=== PATIENT | female | born 1975 | race Caucasian/White ===

== ENCOUNTER 2019-09-28 08:35 | Outpatient (CLI) | payer OTHER, SELFPAY ==
--- NOTE | 2019-09-28 10:00 | NEURO_ITS ---
Patient Number: [id number] Impression: # Complains of intermittent numbness of legs; diabetic. # Normal nerve conduction study at this stage including F-waves. # Normal needle/EMG exam. # Clinical correlation recommended. Nerve Conduction Studies Anti Sensory Summary Table Stim Site NR Peak (ms) P-T Amp (?V) Site1 Site2 Delta-P (ms) Dist (cm) Chris (m/s) Left Sup Fibular Anti Sensory (Ant Lat Mall) 14 cm 3.6 16.2 14 cm Ant Lat Mall 3.6 16.0 44 Right Sup Fibular Anti Sensory (Ant Lat Mall) 14 cm 3.5 10.1 14 cm Ant Lat Mall 3.5 16.0 46 Left Sural Anti Sensory (Lat Mall) Calf 3.9 5.4 Calf Lat Mall 3.9 16.0 41 Right Sural Anti Sensory (Lat Mall) Calf 3.9 7.6 Calf Lat Mall 3.9 16.0 41 Motor Summary Table Stim Site NR Onset (ms) O-P Amp (mV) Site1 Site2 Delta-0 (ms) Dist (cm) Chris (m/s) Left Peroneal Motor (Vastus Med) Ankle 4.5 2.6 Popit Ankle 9.3 40.0 43 Popit 13.8 1.5 Right Peroneal Motor (Vastus Med) Ankle 4.2 2.3 Popit Ankle 8.0 38.0 48 Popit 12.2 0.9 Left Tibial Motor (Abd Mahoney Brev) Ankle 4.6 1.9 Knee Ankle 8.9 42.0 47 Knee 13.5 0.9 Right Tibial Motor (Abd Mahoney Brev) Ankle 4.9 3.9 Knee Ankle 7.8 42.0 54 Knee 12.7 5.6 F Wave Studies NR F-Lat (ms) L-R F-Lat (ms) Left Peroneal (Mrkrs) (EDB) 48.83 0.30 Right Peroneal (Mrkrs) (EDB) 48.54 0.30 Left Tibial (Mrkrs) (Abd Hallucis) 48.17 0.61 Right Tibial (Mrkrs) (Abd Hallucis) 48.78 0.61 EMG Side Muscle Nerve Root Ins Act Fibs Amp Dur Recrt Comment Right AntTibialis Dp Br Fibular L4-5 Nml Nml Nml Nml Nml Right Gastroc Tibial S1-2 Nml Nml Nml Nml Nml Right Fibularis Long Sup Br Fibular L5-S1 Nml Nml Nml Nml Nml Right Flex Dig Long Tibial L5-S2 Nml Nml Nml Nml Nml Right Ext Dig Brev Dp Br Fibular L5, S1 Nml Nml Nml Nml Nml Left AntTibialis Dp Br Fibular L4-5 Nml Nml Nml Nml Nml Left Gastroc Tibial S1-2 Nml Nml Nml Nml Nml Left Fibularis Long Sup Br Fibular L5-S1 Nml Nml Nml Nml Nml Left Flex Dig Long Tibial L5-S2 Nml Nml Nml Nml Nml Left Ext Dig Brev Dp Br Fibular L5, S1 Nml Nml Nml Nml Nml Right QuadratusFem QuadFemoris L4-5, S1 Nml Nml Nml Nml Nml Left QuadratusFem QuadFemoris L4-5, S1 Nml Nml Nml Nml Nml MTDD
== END 2019-09-28 08:36 | disposition home or self-care (01) ==
LOC: ANHNEURO 08:37
PROVIDERS: PCP Internal Medicine; Visit Provider Nurse Practitioner
DX: R20.0 Anesthesia of skin (principal); R20.2 Paresthesia of skin
CPT/HCPCS: 95886; 95910

== ENCOUNTER → 2019-10-03 12:04 | Outpatient (CLI) | payer BC, SELFPAY ==
--- NOTE | ~2019-10-03 | MMUS_ITS ---
EXAMINATION: MM diagnostic kala BI w ray, US breast BI complete HISTORY: Palpable bilateral breast nodules TECHNIQUE: 3-D tomosynthesis images of both breasts were performed and synthetic 2-D images were gene rated. CAD analysis was submitted and interpreted. High resolution bilateral complete breast ultrasou nd was performed. COMPARISON: 09/04/2014 bilateral digital screening mammogram BREAST PARENCHYMAL COMPOSITION: There are scattered areas of fibroglandular density. FINDINGS: MAMMOGRAPHIC FINDINGS: No suspicious mass or architectural distortion, malignant calcification, skin thickening or retractio n or significant new or developing density is detected. ULTRASOUND: Right breast: There is shadowing from a calcified microhematomas at 12:00 right breast 3 cm from the nipple. There is a septated cyst at right breast 6:00 1 cm from nipple measuring approximately 3 x 7 mm. At 11:00 3 cm from the nipple in the right breast there is an approximately 2.6 mm cyst Left breast 5:00 1 cm from nipple: 2.3 x 3.4 mm cyst IMPRESSION: 1. No mammographic evidence of malignancy 2. Routine mammographic screening is recommended. BI-RADS Category 2: Benign finding(s). Reviewed, dictated and finalized at location A. IMPRESSION: 1. No mammographic evidence of malignancy 2. Routine mammographic screening is recommended. BI-RADS Category 2: Benign finding(s).
== END ==
PROVIDERS: PCP Internal Medicine; Visit Provider Nurse Practitioner
DX: N63.10 Unspecified lump in the right breast, unspecified quadrant (principal); N63.20 Unspecified lump in the left breast, unspecified quadrant; R92.8 Other abnormal and inconclusive findings on diagnostic imaging of breast
CPT/HCPCS: 76641; 77062; 77066; G0279

== ENCOUNTER 2019-10-12 07:34 | Outpatient (CLI) | payer OTHER, SELFPAY ==
[2019-10-12 08:39] LABS: Potassium 4.3 mmol/L (3.4-5.0)
[2019-10-12 08:51] LABS: LDL Cholesterol Direct 45 mg/dL
[2019-10-12 09:07] LABS: Anion Gap 5 mmol/L (8-16); Blood Urea Nitrogen 8 mg/dL (7-17); Calcium 8.9 mg/dL (8.4-10.2); Carbon Dioxide 29 mmol/L (22-30); Chloride 105 mmol/L (98-107); Cholesterol 92 mg/dL (0-200); Estimated Glomerular Filt Rate > 60; Glucose 84 mg/dL (65-105); HDL Direct 34 mg/dL; Sodium 139 mmol/L (137-145); Triglycerides 80 mg/dL (<150)
[2019-10-12 09:17] LABS: Creatinine Urine 155.1 mg/dL
[2019-10-12 09:21] LABS: MALB Creatinine Ratio 4.9 mg/g (0-30); Microalbumin Urine Random 7.6 mg/L (0-16.7)
[2019-10-12 09:58] LABS: Hemoglobin A1C 6.3 % (<5.7)
== END 2019-10-12 07:35 | disposition home or self-care (01) ==
LOC: ANHLAB 07:35
PROVIDERS: PCP Internal Medicine; Visit Provider Clinical Nurse Specialist
DX: E11.9 Type 2 diabetes mellitus without complications (principal)
CPT/HCPCS: 36415; 80048; 80061; 82043; 83036

== ENCOUNTER 2019-10-30 16:45 | Outpatient (CLI) | payer OTHER, SELFPAY ==
--- NOTE | ~2019-10-30 | MR_ITS ---
EXAMINATION: MR lumbar spine wo con DATE: 10/30/2019 17:55 INDICATION: Lower extremity weakness. Low back pain. TECHNIQUE: Magnetic resonance imaging (MRI) of the lumbar spine was performed without intravenous con trast. Sequences included sagittal T2-weighted FSE, sagittal T2-weighted FS FSE, sagittal T1-weighted FSE, and axial T2-weighted FSE. COMPARISON: Lumbar spine radiographs 07/04/2012 FINDINGS: There is 5 degrees dextrocurvature of lumbar spine. L5 is a transitional segment. Vertebral body heights are normal. There is mildly decreased disc height at L3-L4 and severely decreased disc height at L4-L5. The distal spinal cord signal intensity is normal. The conus medullaris is at L1. Th e following disc levels are specifically discussed: L1-L2: The disc does not extend beyond the endplate margin. There is mild bilateral facet joint osteo arthritis. There is no neural foraminal stenosis. There is no central canal stenosis. L2-L3: The disc does not extend beyond the endplate margin. There is mild bilateral facet joint osteo arthritis. There is no neural foraminal stenosis. There is no central canal stenosis. L3-L4: The disc is bulging with superimposed central extrusion. There is mild left facet joint osteoa rthritis. There is mild bilateral neural foraminal stenosis. There is mild central canal stenosis. L4-L5: The disc is bulging with superimposed right central extrusion. There is moderate bilateral fac et joint osteoarthritis. There is mild bilateral neural foraminal stenosis. There is mild central can al stenosis. L5-S1: The disc does not extend beyond the endplate margin. There is mild bilateral facet joint osteo arthritis. There is no neural foraminal stenosis. There is no central canal stenosis. IMPRESSION: 1. Severe lumbar spondylosis. Reviewed, dictated and finalized at location A.
== END 2019-10-30 16:46 | disposition home or self-care (01) ==
PROVIDERS: PCP Internal Medicine; Visit Provider Clinical Nurse Specialist
DX: R20.0 Anesthesia of skin (principal); R20.2 Paresthesia of skin; M47.816 Spondylosis without myelopathy or radiculopathy, lumbar region
CPT/HCPCS: 72148

== ENCOUNTER 2020-01-23 07:39 | Outpatient (CLI) | payer OTHER, SELFPAY ==
[2020-01-23 08:30] LABS: Hemoglobin A1C 7.1 % (<5.7)
== END 2020-01-23 07:40 | disposition home or self-care (01) ==
PROVIDERS: PCP Internal Medicine; Visit Provider Clinical Nurse Specialist
DX: E11.9 Type 2 diabetes mellitus without complications (principal)
CPT/HCPCS: 36415; 83036

== ENCOUNTER 2020-03-05 12:58 | Outpatient (CLI) | payer OTHER, SELFPAY ==
[2020-03-05 13:34] LABS: Add Urine Microscopic? YES; Appearance Urine Clear (Clear); Bilirubin Urine Negative (Negative); Blood Urine Negative (Negative); Color Urine Yellow (Yellow); Glucose Urine UA Negative (Negative); Ketones Urine Trace mg/dL (Negative); Leukocyte Esterase Ur Trace LEU/UL (Negative); Mucus Urine Rare /lpf; Nitrate Urine Negative (Negative); Protein Urine 1+ mg/dL (Negative); Specific Grav Ur 1.026 (1.001-1.035); Squamous Epithelial Cell Urine Few /hpf (Few); Urobilinogen Urine Negative mg/dL (<2.0)
== END 2020-03-05 12:59 | disposition home or self-care (01) ==
PROVIDERS: PCP Internal Medicine; Visit Provider Nurse Practitioner
DX: R30.0 Dysuria (principal)
CPT/HCPCS: 81001; 87086

== ENCOUNTER → 2020-04-04 09:17 | Outpatient (CLI) | payer OTHER, SELFPAY ==
[2020-04-04 13:39] LABS: Influenza Control Positive
[2020-04-04 20:13] LABS: SARS-CoV-2 RNA PCR Negative
== END ==
PROVIDERS: PCP Internal Medicine; Visit Provider Nurse Practitioner
DX: R50.9 Fever, unspecified (principal); Z20.822 Contact with and (suspected) exposure to COVID-19
CPT/HCPCS: 87804; C9803; U0003; U0005

== ENCOUNTER 2020-04-19 07:10 | Outpatient (CLI) | payer OTHER, SELFPAY ==
[2020-04-19 07:54] LABS: Basophils Absolute Auto 0.1 K/mm3 (0.0-0.1); Eosinophils Absolute Auto 0.3 K/mm3 (0-0.3); Eosinophils Percent Auto 3.6 % (0-4.4); Hematocrit 42.1 % (37.0-47.0); Hemoglobin 13.9 g/dL (12.0-15.0); Immature Granulocyte Absolute 0.02 K/mm3 (0.00-0.031); Immature Granulocyte Percent A 0.2 % (0-0.5); Lymphocytes Absolute Auto 2.13 K/mm3 (0.9-3.2); Lymphocytes Percent Auto 25.8 % (18.3-44.2); Mean Corpuscular Hemoglobin 31.2 pg (26-34); Mean Corpuscular Volume 94.6 fl (80-100); Monocytes Absolute Auto 0.7 K/mm3 (0.1-0.6); Monocytes Percent Auto 7.9 % (2.6-8.5); Neutrophils Absolute Auto 5.1 K/mm3 (1.3-6.7); Neutrophils Percent Auto 61.5 % (45.5-73.1); Platelet Count Result 312 k/mm3 (150-375); Red Blood Count 4.45 M/mm3 (4.2-5.4); Red Cell Distribution Width 12.2 % (11.5-14.5); White Blood Count 8.3 K/mm3 (4.5-10.0)
[2020-04-19 08:08] LABS: Alanine Aminotransferase 19 U/L (4-35); Albumin Level 3.9 g/dL (3.5-5.1); Alkaline Phosphatase 73 U/L (38-126); Anion Gap 3 mmol/L (8-16); Aspartate Amino Transferase 21 U/L (14-36); Bilirubin,Total 0.5 mg/dL (0.2-1.3); Blood Urea Nitrogen 7 mg/dL (7-17); Calcium 9.2 mg/dL (8.4-10.2); Carbon Dioxide 30 mmol/L (22-30); Chloride 105 mmol/L (98-107); Estimated Glomerular Filt Rate > 60; Glucose 116 mg/dL (65-105); Potassium 4.1 mmol/L (3.4-5.0); Sodium 138 mmol/L (137-145)
[2020-04-19 09:02] LABS: Vitamin D 25 Hydroxy 46.1 ng/mL
[2020-04-19 09:14] LABS: Folic Acid 9.4 ng/mL (2.76->20)
== END 2020-04-19 07:11 | disposition home or self-care (01) ==
PROVIDERS: PCP Internal Medicine; Visit Provider Clinical Nurse Specialist
DX: E11.9 Type 2 diabetes mellitus without complications (principal); R11.2 Nausea with vomiting, unspecified; E55.9 Vitamin D deficiency, unspecified
CPT/HCPCS: 36415; 80053; 82306; 82607; 82746; 83036; 85025

== ENCOUNTER → 2020-05-04 00:33 | Outpatient (CLI) | payer OTHER, SELFPAY ==
[2020-05-04 19:13] LABS: SARS-CoV-2 RNA PCR Negative
== END ==
PROVIDERS: PCP Internal Medicine; Visit Provider Internal Medicine Gastroenterology
DX: Z01.812 Encounter for preprocedural laboratory examination (principal); Z20.822 Contact with and (suspected) exposure to COVID-19
CPT/HCPCS: C9803; U0003; U0005

== ENCOUNTER 2020-05-08 03:03 | Day surgery (SDC) | payer OTHER, SELFPAY ==
[2020-04-23 15:05] VITALS: BMI 27.0
[2020-05-08 10:49] VITALS: BP 122/87; PULSE 70; RESP 20; TEMP 36.6; O2SAT 100
[2020-05-08] MEDS: LACTATED RINGERS 1,000 ML 150 ML IV CONT (11:00)
[2020-05-08 11:04] LABS: Glucose Point of Care 118 (65-105)
--- NOTE | 2020-05-08 11:04 | WPDANESEPPF ---
Anes - Initial Pre Proc Eval Procedure: Operation Date: 05/08/20 12:00 Proposed Procedures p Esophagogastroduodenoscopy & Screening Colonoscpy - Carlos Alberto Mckenna MD Date/Time: 05/08/20 11:04 Surgeon: Carlos Alberto Mckenna MD Pre Op Diagnosis: Vomitting, Neoplasm Screening Patient Data Age: 44 Gender: F Height: 5 ft 6 in Weight: 74.7 kg Last Vital Signs Temp 97.8 F 05/08/20 10:49 Pulse 70 05/08/20 10:49 Resp 20 05/08/20 10:49 BP 122/87 05/08/20 10:49 Pulse Ox 100 05/08/20 10:49 Allergies Allergy/AdvReac Type Severity Reaction Status Date / Time tetracycline Allergy Unknown Unknown Verified 05/08/20 10:48 Home Medications Medication Instructions Recorded Confirmed Type atorvastatin 10 mg tablet 10 mg PO DAILY #90 tablet 01/24/20 04/23/20 Rx metformin 1,000 mg tablet 1,000 mg PO BID #180 tablet 01/24/20 04/23/20 Rx blood sugar diagnostic #100 ea 01/25/20 04/23/20 Rx blood-glucose meter #1 ea 01/25/20 04/23/20 Rx lancets #100 ea 01/25/20 04/23/20 Rx lisinopril 5 mg tablet 5 mg PO DAILY #90 tablet 01/25/20 04/23/20 Rx famotidine 20 mg tablet 20 mg PO DAILY #90 tablet 02/13/20 04/23/20 Rx Laboratory Tests 05/08/20 10:55 POC Capillary Glucose Pending Patient hx anesthesia problems: none Family hx anesthesia problems: none PMFSH Past Medical History Medical History Bone spur shoulder Essential tremor Herniated disc History of hemorrhoids Low vitamin D level Type 2 diabetes mellitus Surgical History Surgical History History of gastric bypass Family History Family History Sibling Hypertension Diabetes mellitus Father Diabetes mellitus Hypertension Osteoarthritis Mother Hypertension Asthma Osteoarthritis Social History Social History (Updated 04/01/20 @ 11:50 by GABO Yuen Years smoked: 5 Smoking status: Former smoker Tobacco type: cigarettes Smoking end date: 02/15/03 Alcohol intake: never Substance use: never Substance use type: does not use Living arrangements: alone Gender identity (if verbalized by the patient): Female Spiritual care concerns: No Anes - Eval Final PreProcedure Day of Procedure 05/08/20 11:04 Patient weight: overweight Heart: regular rate and rhythm Lungs: clear to auscultation Airway: Mallampati scale class II Neurological: alert and oriented Last oral intake: >/= 8 hours ASA classification: III Emergent: no Anesthetic plan: proceed Anesthesia type and monitoring: general GIVS and standard monitoring Informed Consent: The patient's anesthetic plan and its attendant risks and benefits were discussed with the patient/family/POA. Questions were solicited and answers provided to the satisfaction of the patient/family/POA.
--- NOTE | 2020-05-08 11:54 | PM.HPGS ---
History of Present Illness History of Present Illness Consent: Risks, benefits, and alternatives have been discussed and questions answered. Patient agrees to proceed with procedure. Chief complaint: Vomitting, Neoplasm Screening Narrative: Maricel Landaverde is a 44 year old female with intermittent nausea and vomiting (had gastric bypass) better with pepcid, also due to have a colonoscopy Review of Systems Constitutional: Constitutional: Denies headache(s) and Denies weakness Eyes: Eyes: Denies blurry vision ENT: Reports Normal hearing present, Denies headache(s) and Denies neck pain Cardiovascular: Cardiovascular: Denies chest pain and Denies dyspnea Respiratory: Respiratory: Denies dyspnea Gastrointestinal: Gastrointestinal: Reports no additional gastrointestinal complaints Genitourinary: Genitourinary: Denies dysuria Musculoskeletal: Musculoskeletal: Denies neck pain Integumentary/Breasts: Skin/Breast: Denies dry skin Neurologic: Reports Normal hearing present, Denies headache(s) and Denies weakness Psychiatric: Psychiatric: Denies anxiety Endocrine: Endocrine: Denies change in body appearance Hematologic/Lymphatic: Hematologic/Lymphatic: Denies easy bleeding Allergic/Immunologic: Allergic/Immunologic: Denies urticaria PMFSH Past Medical History Medical History Bone spur shoulder Essential tremor Herniated disc History of hemorrhoids Low vitamin D level Type 2 diabetes mellitus Surgical History Surgical History History of gastric bypass Family History Family History Sibling Hypertension Diabetes mellitus Father Diabetes mellitus Hypertension Osteoarthritis Mother Hypertension Asthma Osteoarthritis Social History Social History (Updated 04/01/20 @ 11:50 by Shilpi Griffin CMA) Years smoked: 5 Smoking status: Former smoker Tobacco type: cigarettes Smoking end date: 02/15/03 Alcohol intake: never Substance use: never Substance use type: does not use Living arrangements: alone Gender identity (if verbalized by the patient): Female Spiritual care concerns: No Meds Home Medications and Allergies Home Medications Medication Instructions Recorded Confirmed Type atorvastatin 10 mg tablet 10 mg PO DAILY #90 tablet 01/24/20 04/23/20 Rx metformin 1,000 mg tablet 1,000 mg PO BID #180 tablet 01/24/20 04/23/20 Rx blood sugar diagnostic #100 ea 01/25/20 04/23/20 Rx blood-glucose meter #1 ea 01/25/20 04/23/20 Rx lancets #100 ea 01/25/20 04/23/20 Rx lisinopril 5 mg tablet 5 mg PO DAILY #90 tablet 01/25/20 04/23/20 Rx famotidine 20 mg tablet 20 mg PO DAILY #90 tablet 02/13/20 04/23/20 Rx Allergies Allergy/AdvReac Type Severity Reaction Status Date / Time tetracycline Allergy Unknown Unknown Verified 05/08/20 10:48 Vital Signs Vital Signs - 24 hr 05/08/20 10:49 Temperature 97.8 F Pulse Rate 70 Respiratory Rate 20 Blood Pressure 122/87 Pulse Oximetry 100 Exam Const: General: comfortable and no acute distress HENMT: General nose exam: Normal nares present Eyes: General: appearance normal, both eyes and all related structures Neck: Neck: no JVD Resp: Auscultation: clear to auscultation bilaterally Cardio: Rate: regular rate Rhythm: regular rhythm GI: Inspection: non-distended GI Palp: Yes Soft to palpation Skin: General skin exam: normal color Neuro: General: gait normal Speech: normal speech Extrem: General: normal to inspection Psych: Mental Status: mental status grossly normal Assessment and Plan Assessment and plan (1) Nausea and vomiting: Qualifiers: Vomiting type: unspecified Vomiting Intractability: non-intractable Qualified Code(s): R11.2 - Nausea with vomiting, unspecified Code(s): R11.2 - Nausea with vomiti
[2020-05-08 12:29] VITALS: BP 112/73; PULSE 67; RESP 19; O2SAT 98
[2020-05-08 12:39] VITALS: BP 108/78; PULSE 61; RESP 17; O2SAT 99
[2020-05-08 12:49] VITALS: BP 115/75; PULSE 60; RESP 17; O2SAT 100
== END 2020-05-08 13:02 | disposition home or self-care (01) ==
PROVIDERS: PCP Internal Medicine; Visit Provider Internal Medicine Gastroenterology
PROC: 0DJ08ZZ Inspection of Upper Intestinal Tract, Via Natural or Artificial Opening Endoscopic (ICD-10-PCS; CPT 43235; principal; 2020-05-08 12:00)
DX: Z12.11 Encounter for screening for malignant neoplasm of colon (principal); D12.0 Benign neoplasm of cecum; K64.8 Other hemorrhoids; K21.00 Gastro-esophageal reflux disease with esophagitis, without bleeding; K44.9 Diaphragmatic hernia without obstruction or gangrene; K22.2 Esophageal obstruction; K29.50 Unspecified chronic gastritis without bleeding; Z98.84 Bariatric surgery status; E11.9 Type 2 diabetes mellitus without complications; G25.0 Essential tremor; Z79.84 Long term (current) use of oral hypoglycemic drugs; Z87.891 Personal history of nicotine dependence
CPT/HCPCS: 45380; 43239; 82948; 88305; C9803; J2001; J2704; J7120; U0003; U0005

== ENCOUNTER 2020-07-29 07:40 | Outpatient (CLI) | payer OTHER, SELFPAY ==
[2020-07-29 08:09] LABS: Hemoglobin A1C 7.7 % (<5.7)
[2020-07-29 09:48] LABS: Creatinine Urine 418.5 mg/dL; MALB Creatinine Ratio 12.9 mg/g (0-30)
== END 2020-07-29 07:41 | disposition home or self-care (01) ==
PROVIDERS: PCP Internal Medicine; Visit Provider Clinical Nurse Specialist
DX: E11.9 Type 2 diabetes mellitus without complications (principal)
CPT/HCPCS: 36415; 82043; 83036

== ENCOUNTER 2020-10-28 08:48 | Outpatient (CLI) | payer OTHER, SELFPAY ==
[2020-10-28 09:08] LABS: Basophils Absolute Auto 0.1 K/mm3 (0.0-0.1); Basophils Percent Auto 0.5 % (0.2-1.2); Eosinophils Absolute Auto 0.3 K/mm3 (0-0.3); Eosinophils Percent Auto 3.3 % (0-4.4); Hematocrit 42.7 % (37.0-47.0); Immature Granulocyte Absolute 0.03 K/mm3 (0.00-0.031); Immature Granulocyte Percent A 0.3 % (0-0.5); Lymphocytes Absolute Auto 2.33 K/mm3 (0.9-3.2); Lymphocytes Percent Auto 24.9 % (18.3-44.2); Mean Corpuscular HGB Conc 32.8 g/dl (32-36); Mean Corpuscular Hemoglobin 31.9 pg (26-34); Mean Corpuscular Volume 97.3 fl (80-100); Mean Platelet Volume 9.2 fl (7.4-10.4); Monocytes Absolute Auto 0.7 K/mm3 (0.1-0.6); Monocytes Percent Auto 7.5 % (2.6-8.5); Neutrophils Absolute Auto 5.9 K/mm3 (1.3-6.7); Neutrophils Percent Auto 63.5 % (45.5-73.1); Platelet Count Result 277 k/mm3 (150-375); Red Blood Count 4.39 M/mm3 (4.2-5.4); Red Cell Distribution Width 12.4 % (11.5-14.5); White Blood Count 9.4 K/mm3 (4.5-10.0)
[2020-10-28 09:29] LABS: Anion Gap 10 mmol/L (8-16); Blood Urea Nitrogen 6 mg/dL (7-17); Calcium 9.3 mg/dL (8.4-10.2); Carbon Dioxide 25 mmol/L (22-30); Chloride 105 mmol/L (98-107); Estimated Glomerular Filt Rate > 60; Glucose 100 mg/dL (65-110); Potassium 4.1 mmol/L (3.4-5.0); Sodium 140 mmol/L (137-145)
[2020-10-28 10:05] LABS: Microalbumin Urine Random 30.3 mg/L (0-16.7)
[2020-10-28 10:25] LABS: Hemoglobin A1C 6.6 % (<5.7)
[2020-10-28 10:42] LABS: Creatinine Urine 354.6 mg/dL; MALB Creatinine Ratio 8.5 mg/g (0-30)
== END 2020-10-28 08:49 | disposition home or self-care (01) ==
PROVIDERS: PCP Internal Medicine; Visit Provider Clinical Nurse Specialist
DX: E11.9 Type 2 diabetes mellitus without complications (principal)
CPT/HCPCS: 36415; 80048; 82043; 83036; 85025

== ENCOUNTER → 2020-10-30 17:05 | Outpatient (CLI) | payer OTHER, SELFPAY ==
--- NOTE | ~2020-10-30 | MM_ITS ---
EXAMINATION: MM screening kala BI w ray HISTORY: Screening TECHNIQUE: Craniocaudal and mediolateral oblique 3-D tomosynthesis images were obtained and synthetic 2-D images were generated. CAD analysis was submitted and interpreted. COMPARISON: Comparison to multiple prior studies sequentially, with oldest reviewed study dated 09/04. BREAST PARENCHYMAL COMPOSITION: There are scattered areas of fibroglandular density. FINDINGS: There are some developing focal asymmetry bilaterally in the lower central breasts there ar e no suspicious calcifications in either breast. IMPRESSION: 1. Developing bilateral breast asymmetries. 2. Additional mammographic views and possible breast ultrasound are recommended. BI-RADS Category 0: Incomplete: Needs additional imaging evaluation. Reviewed, dictated and finalized at location A. IMPRESSION: 1. Developing bilateral breast asymmetries. 2. Additional mammographic views and possible breast ultrasound are recommended . BI-RADS Category 0: Incomplete: Needs additional imaging evaluation.
== END ==
PROVIDERS: PCP Internal Medicine; Visit Provider Clinical Nurse Specialist
DX: Z12.31 Encounter for screening mammogram for malignant neoplasm of breast (principal); R92.8 Other abnormal and inconclusive findings on diagnostic imaging of breast
CPT/HCPCS: 77063; 77067

== ENCOUNTER → 2020-11-26 08:45 | Outpatient (CLI) | payer OTHER, SELFPAY ==
--- NOTE | ~2020-11-26 | MMUS_ITS ---
EXAMINATION: MM diagnostic kala BI w ray, US breast BI limited HISTORY: Follow-up bilateral breast asymmetries TECHNIQUE: Additional 3-D tomosynthesis images of the breasts were performed and synthetic 2-D images were generated. CAD analysis was submitted and interpreted. High resolution limited bilateral breast ultrasound was performed. COMPARISON: 10/30/2020 BREAST PARENCHYMAL COMPOSITION: Breast composed of scattered areas of fibroglandular density. FINDINGS: MAMMOGRAPHIC FINDINGS: There is persistent asymmetry in the lower outer quadrant of the right breast anteriorly. There are n o suspicious calcifications. Left breast asymmetries are less apparent with spot compression and medi olateral view, likely superimposed fibroglandular tissue. ULTRASOUND: Right breast ultrasound, limited: At 5:00, 2.5 cm from the nipple, there is a slightly irregular hypo echoic mass with multiple foci of increased echogenicity internally. This mass measures 8 x 6 x 3 mm. No posterior features or internal vascularity. Left breast ultrasound, limited: At 6:00, 3 cm from the nipple, there is a 3 mm cyst. At 10:00 near t he area where there is a 6 mm cyst. At 11:00, 5 cm from the nipple, there is a benign-appearing 6 mm intramammary lymph node. IMPRESSION: 1. Irregular heterogeneous 8mm mass in the right breast at 5:00, 2.5 cm from the nipple. No evidence for malignancy in the left breast. 2. Ultrasound-guided right breast biopsy recommended. BI-RADS category 4, suspicious findings. Reviewed, dictated and finalized at location A. IMPRESSION: 1. Irregular heterogeneous 8mm mass in the right breast at 5:00, 2.5 cm from th e nipple. No evidence for malignancy in the left breast. 2. Ultrasound-guided right breast biopsy recommended. BI-RADS category 4, suspicious findings.
== END ==
PROVIDERS: PCP Internal Medicine; Visit Provider Clinical Nurse Specialist
DX: N63.14 Unspecified lump in the right breast, lower inner quadrant (principal); N63.25 Unspecified lump in the left breast, overlapping quadrants
CPT/HCPCS: 76642; 77062; 77066; G0279

== ENCOUNTER → 2021-02-24 03:51 | Outpatient (CLI) | payer OTHER, SELFPAY ==
[2021-02-24 20:23] LABS: SARS-CoV-2 RNA PCR Positive
== END ==
PROVIDERS: PCP Internal Medicine; Visit Provider Nurse Practitioner
DX: U07.1 COVID-19 (principal)
CPT/HCPCS: C9803; U0003; U0005

== ENCOUNTER 2021-08-12 06:49 | Outpatient (CLI) | payer OTHER, SELFPAY ==
[2021-08-12 08:17] LABS: Basophils Absolute Auto 0.1 K/mm3 (0.0-0.1); Basophils Percent Auto 0.6 % (0.2-1.2); Eosinophils Absolute Auto 0.5 K/mm3 (0-0.3); Eosinophils Percent Auto 5.9 % (0-4.4); Hematocrit 38.7 % (37.0-47.0); Hemoglobin 12.3 g/dL (12.0-15.0); Immature Granulocyte Absolute 0.03 K/mm3 (0.00-0.031); Immature Granulocyte Percent A 0.4 % (0-0.5); Lymphocytes Percent Auto 23.8 % (18.3-44.2); Mean Corpuscular HGB Conc 31.8 g/dl (32-36); Mean Corpuscular Hemoglobin 30.4 pg (26-34); Mean Corpuscular Volume 95.6 fl (80-100); Mean Platelet Volume 9.9 fl (7.4-10.4); Monocytes Absolute Auto 0.5 K/mm3 (0.1-0.6); Monocytes Percent Auto 6.8 % (2.6-8.5); Neutrophils Percent Auto 62.5 % (45.5-73.1); Platelet Count Result 245 k/mm3 (150-375); Red Blood Count 4.05 M/mm3 (4.2-5.4); Red Cell Distribution Width 13.1 % (11.5-14.5)
[2021-08-12 08:26] LABS: Hemoglobin A1C 7.6 % (<5.7)
[2021-08-12 08:27] LABS: Alanine Aminotransferase 22 U/L (6-35); Albumin Level 3.7 g/dL (3.5-5.1); Alkaline Phosphatase 87 U/L (38-126); Anion Gap 6 mmol/L (8-16); Aspartate Amino Transferase 25 U/L (14-36); Bilirubin,Total 0.4 mg/dL (0.2-1.3); Blood Urea Nitrogen 8 mg/dL (7-17); Calcium 8.2 mg/dL (8.4-10.2); Carbon Dioxide 26 mmol/L (22-30); Chloride 105 mmol/L (98-107); Cholesterol 123 mg/dL (0-200); Estimated Glomerular Filt Rate > 60; Glucose 119 mg/dL (65-110); HDL Direct 40 mg/dL; Potassium 4.5 mmol/L (3.4-5.0); Sodium 137 mmol/L (137-145); Triglycerides 134 mg/dL (<150)
[2021-08-12 08:37] LABS: LDL Cholesterol Direct 58 mg/dL
== END 2021-08-12 06:50 | disposition home or self-care (01) ==
LOC: ANHLAB 06:52
PROVIDERS: PCP Internal Medicine; Visit Provider Nurse Practitioner
DX: E11.9 Type 2 diabetes mellitus without complications (principal)
CPT/HCPCS: 36415; 80053; 80061; 83036; 85025

== ENCOUNTER 2021-12-11 08:52 | Outpatient (CLI) | payer OTHER, SELFPAY ==
[2021-12-11 19:40] LABS: Anion Gap 12 mmol/L (8-16); Blood Urea Nitrogen 8 mg/dL (7-17); Calcium 8.8 mg/dL (8.4-10.2); Carbon Dioxide 24 mmol/L (22-30); Chloride 101 mmol/L (98-107); Estimated Glomerular Filt Rate > 60; Glucose 128 mg/dL (65-110); Potassium 3.8 mmol/L (3.4-5.0); Sodium 137 mmol/L (137-145)
[2021-12-11 20:16] LABS: Vitamin D 25 Hydroxy 35.2 ng/mL
[2021-12-11 20:30] LABS: Iron 53 ug/dL (37-170)
[2021-12-11 20:39] LABS: Percent Iron Saturation 11 % (20-50)
[2021-12-11 22:08] LABS: Creatinine Urine 265.5 mg/dL
[2021-12-11 22:12] LABS: Microalbumin Urine Random 58.4 mg/L (0-16.7)
== END 2021-12-11 08:53 | disposition home or self-care (01) ==
LOC: ANHGOSHLAB 08:53
PROVIDERS: PCP Internal Medicine; Visit Provider Clinical Nurse Specialist
DX: D64.9 Anemia, unspecified (principal); E11.9 Type 2 diabetes mellitus without complications; R74.8 Abnormal levels of other serum enzymes; E55.9 Vitamin D deficiency, unspecified
CPT/HCPCS: 36415; 80048; 82043; 82306; 82607; 82728; 83036; 83540; 83550

== ENCOUNTER → 2022-01-02 07:43 | Outpatient (CLI) | payer OTHER, SELFPAY ==
--- NOTE | ~2022-01-02 | MMUS_ITS ---
EXAMINATION: MM diagnostic kala BI w ray, US breast LT limited, US breast RT complete HISTORY: Follow-up breast masses. TECHNIQUE: Additional 3-D tomosynthesis images of the breasts were performed and synthetic 2-D images were generated. CAD analysis was submitted and interpreted. High resolution complete right and limit ed left breast ultrasound was performed. COMPARISON: Comparison to multiple prior studies sequentially, with oldest reviewed study dated 09/04. BREAST PARENCHYMAL COMPOSITION: The breasts are heterogeneously dense, which may obscure small masses FINDINGS: MAMMOGRAPHIC FINDINGS: There is a stable focal asymmetry in the lower central aspect of the right breast. No new masses are identified in either breast. No suspicious architectural distortion. There are benign-appearing right breast calcifications. ULTRASOUND: Complete right breast US of all 4 quadrants of the breasts and retroareolar region was reviewed. At 5 :00, 3 cm from the nipple, there is a stable septated cystic mass measuring 4 x 5 x 3 mm compared wit h 6 x 3 x 8 mm on prior examination. There appeared to be layering calcifications, likely benign give n the lack of interval change. Limited left breast ultrasound: At 10:00 near the areola there is a 6 mm cyst. No suspicious masses t o suggest malignancy. IMPRESSION: 1. Probable benign sonographic mass of the right breast at 5:00, 2 cm from the nipple. 2. Recommend 6 month follow-up Limited right breast ultrasound. BI-RADS category 3, probably benign findings. Reviewed, dictated and finalized at location A. OR COUNSEL IMPRESSION: 1. Probable benign sonographic mass of the right breast at 5:00, 2 cm from the nipple. 2. Recommend 6 month follow-up Limited right breast ultrasound. BI-RADS category 3, probably benign findings. IMPRESSION: 1. Probable benign sonographic mass of the right breast at 5:00, 2 cm from the nipple. 2. Recommend 6 month follow-up Limited right breast ultrasound. BI-RADS category 3, probably benign findings.
== END ==
PROVIDERS: PCP Internal Medicine; Visit Provider Clinical Nurse Specialist
DX: N63.10 Unspecified lump in the right breast, unspecified quadrant (principal); R92.8 Other abnormal and inconclusive findings on diagnostic imaging of breast
CPT/HCPCS: 76641; 76642; 77062; 77066; G0279

== ENCOUNTER 2022-06-26 08:48 | Outpatient (CLI) | payer OTHER, SELFPAY ==
[2022-06-26 09:10] LABS: Basophils Absolute Auto 0.1 K/mm3 (0.0-0.1); Basophils Percent Auto 0.6 % (0.2-1.2); Eosinophils Absolute Auto 0.2 K/mm3 (0-0.3); Eosinophils Percent Auto 2.7 % (0-4.4); Hematocrit 41.7 % (37.0-47.0); Hemoglobin 13.3 g/dL (12.0-15.0); Immature Granulocyte Absolute 0.01 K/mm3 (0.00-0.031); Immature Granulocyte Percent A 0.1 % (0-0.5); Lymphocytes Absolute Auto 2.04 K/mm3 (0.9-3.2); Lymphocytes Percent Auto 24.8 % (18.3-44.2); Mean Corpuscular HGB Conc 31.9 g/dl (32-36); Mean Corpuscular Hemoglobin 29.1 pg (26-34); Mean Corpuscular Volume 91.2 fl (80-100); Monocytes Absolute Auto 0.6 K/mm3 (0.1-0.6); Monocytes Percent Auto 7.8 % (2.6-8.5); Neutrophils Absolute Auto 5.3 K/mm3 (1.3-6.7); Platelet Count Result 312 k/mm3 (150-375); Red Blood Count 4.57 M/mm3 (4.2-5.4); Red Cell Distribution Width 12.8 % (11.5-14.5); White Blood Count 8.2 K/mm3 (4.5-10.0)
[2022-06-26 09:15] LABS: Alanine Aminotransferase 26 U/L (6-35); Albumin Level 4.2 g/dL (3.5-5.1); Alkaline Phosphatase 112 U/L (38-126); Anion Gap 7 mmol/L (8-16); Aspartate Amino Transferase 26 U/L (14-36); Bilirubin,Total 0.7 mg/dL (0.2-1.3); Blood Urea Nitrogen 8 mg/dL (7-17); Calcium 8.9 mg/dL (8.4-10.2); Carbon Dioxide 26 mmol/L (22-30); Chloride 105 mmol/L (98-107); Cholesterol 114 mg/dL (0-200); Estimated Glomerular Filt Rate > 60; Glucose 115 mg/dL (65-110); HDL Direct 30 mg/dL; Hemoglobin A1C 8.1 % (<5.7); Potassium 4.4 mmol/L (3.4-5.0); Sodium 138 mmol/L (137-145); Triglycerides 109 mg/dL (<150)
[2022-06-26 09:21] LABS: Iron 99 ug/dL (37-170)
[2022-06-26 09:26] LABS: LDL Cholesterol Direct 65 mg/dL
[2022-06-26 09:30] LABS: Percent Iron Saturation 22 % (20-50)
== END 2022-06-26 08:49 | disposition home or self-care (01) ==
PROVIDERS: PCP Internal Medicine; Visit Provider Clinical Nurse Specialist
DX: D64.9 Anemia, unspecified (principal); E11.9 Type 2 diabetes mellitus without complications
CPT/HCPCS: 36415; 80053; 80061; 82728; 83036; 83540; 83550; 85025

== ENCOUNTER 2022-10-15 08:22 | Outpatient (CLI) | payer OTHER, SELFPAY ==
[2022-10-15 11:19] LABS: Basophils Absolute Auto 0.1 K/mm3 (0.0-0.1); Basophils Percent Auto 0.8 % (0.2-1.2); Eosinophils Absolute Auto 0.3 K/mm3 (0-0.3); Eosinophils Percent Auto 3.2 % (0-4.4); Hematocrit 43.6 % (37.0-47.0); Hemoglobin 14.1 g/dL (12.0-15.0); Immature Granulocyte Absolute 0.02 K/mm3 (0.00-0.031); Immature Granulocyte Percent A 0.3 % (0-0.5); Lymphocytes Absolute Auto 2.05 K/mm3 (0.9-3.2); Lymphocytes Percent Auto 26.6 % (18.3-44.2); Mean Corpuscular HGB Conc 32.3 g/dl (32-36); Mean Corpuscular Hemoglobin 29.8 pg (26-34); Mean Corpuscular Volume 92.2 fl (80-100); Mean Platelet Volume 9.7 fl (7.4-10.4); Monocytes Absolute Auto 0.6 K/mm3 (0.1-0.6); Monocytes Percent Auto 7.1 % (2.6-8.5); Neutrophils Absolute Auto 4.8 K/mm3 (1.3-6.7); Platelet Count Result 336 k/mm3 (150-375); Red Blood Count 4.73 M/mm3 (4.2-5.4); Red Cell Distribution Width 13.1 % (11.5-14.5); White Blood Count 7.7 K/mm3 (4.5-10.0)
[2022-10-15 11:22] LABS: Iron 150 ug/dL (37-170)
[2022-10-15 11:27] LABS: Anion Gap 5 mmol/L (8-16); Blood Urea Nitrogen 8 mg/dL (7-17); Calcium 9.4 mg/dL (8.4-10.2); Carbon Dioxide 31 mmol/L (22-30); Chloride 102 mmol/L (98-107); Estimated Glomerular Filt Rate > 60; Glucose 108 mg/dL (65-110); Potassium 4.7 mmol/L (3.4-5.0); Sodium 138 mmol/L (137-145)
[2022-10-15 11:45] LABS: Creatinine Urine 326.6 mg/dL
[2022-10-15 11:50] LABS: Percent Iron Saturation 30 % (20-50)
[2022-10-15 11:58] LABS: Hemoglobin A1C 7.1 % (<5.7)
[2022-10-15 12:48] LABS: Microalbumin Urine Random 22.8 mg/L (0-16.7)
== END 2022-10-15 08:23 | disposition home or self-care (01) ==
LOC: ANHGOSHLAB 08:24
PROVIDERS: PCP Internal Medicine; Visit Provider Clinical Nurse Specialist
DX: E11.9 Type 2 diabetes mellitus without complications (principal); D64.9 Anemia, unspecified
CPT/HCPCS: 36415; 80048; 82043; 82607; 82728; 83036; 83540; 83550; 85025

== ENCOUNTER 2022-12-18 08:13 | Outpatient (CLI) | payer OTHER, SELFPAY ==
[2022-12-18 08:59] LABS: Anion Gap 5 mmol/L (8-16); Blood Urea Nitrogen 7 mg/dL (7-17); Calcium 9.1 mg/dL (8.4-10.2); Carbon Dioxide 29 mmol/L (22-30); Chloride 104 mmol/L (98-107); Estimated Glomerular Filt Rate > 60; Glucose 112 mg/dL (65-110); Potassium 4.1 mmol/L (3.4-5.0); Sodium 138 mmol/L (137-145)
[2022-12-18 10:07] LABS: Hemoglobin A1C 6.8 % (<5.7)
== END 2022-12-18 08:14 | disposition home or self-care (01) ==
PROVIDERS: PCP Internal Medicine; Visit Provider Clinical Nurse Specialist
DX: L65.9 Nonscarring hair loss, unspecified (principal); E11.9 Type 2 diabetes mellitus without complications
CPT/HCPCS: 36415; 80048; 83036; 84443

== ENCOUNTER 2023-06-19 08:53 | Outpatient (CLI) | payer OTHER, SELFPAY ==
[2023-06-19 09:18] LABS: Anion Gap 3 mmol/L (4-12); Blood Urea Nitrogen 6 mg/dL (7-17); Calcium 8.9 mg/dL (8.4-10.2); Carbon Dioxide 27 mmol/L (22-30); Chloride 107 mmol/L (98-107); Estimated Glomerular Filt Rate > 60; Glucose 141 mg/dL (65-110); Potassium 4.2 mmol/L (3.4-5.0); Sodium 137 mmol/L (137-145)
[2023-06-19 09:28] LABS: Creatinine Urine 340.2 mg/dL
[2023-06-19 09:30] LABS: Hemoglobin A1C 6.6 % (<5.7)
[2023-06-19 09:33] LABS: MALB Creatinine Ratio 7.8 mg/g (0-30); Microalbumin Urine Random 26.7 mg/L (0-16.7)
== END 2023-06-19 08:54 | disposition home or self-care (01) ==
LOC: ANHLAB 08:55
PROVIDERS: PCP Internal Medicine; Visit Provider Clinical Nurse Specialist
DX: E11.9 Type 2 diabetes mellitus without complications (principal)
CPT/HCPCS: 36415; 80048; 82043; 82607; 83036

== ENCOUNTER 2023-12-31 07:43 | Outpatient (CLI) | payer OTHER, SELFPAY ==
[2023-12-31 08:18] LABS: Basophils Absolute Auto 0.1 K/mm3 (0.0-0.1); Basophils Percent Auto 1.3 % (0.2-1.2); Eosinophils Absolute Auto 0.2 K/mm3 (0-0.3); Eosinophils Percent Auto 3.6 % (0-4.4); Hematocrit 41.4 % (37.0-47.0); Hemoglobin 13.3 g/dL (12.0-15.0); Immature Granulocyte Absolute 0.01 K/mm3 (0.00-0.031); Immature Granulocyte Percent A 0.2 % (0-0.5); Lymphocytes Absolute Auto 1.83 K/mm3 (0.9-3.2); Mean Corpuscular HGB Conc 32.1 g/dl (32-36); Mean Corpuscular Hemoglobin 29.8 pg (26-34); Mean Corpuscular Volume 92.6 fl (80-100); Mean Platelet Volume 9.5 fl (7.4-10.4); Monocytes Absolute Auto 0.5 K/mm3 (0.1-0.6); Monocytes Percent Auto 8.1 % (2.6-8.5); Neutrophils Percent Auto 53.8 % (45.5-73.1); Platelet Count Result 308 k/mm3 (150-375); Red Blood Count 4.47 M/mm3 (4.2-5.4); Red Cell Distribution Width 12.8 % (11.5-14.5); White Blood Count 5.6 K/mm3 (4.5-10.0)
[2023-12-31 08:29] LABS: Alanine Aminotransferase 25 U/L (6-35); Albumin Level 4.1 g/dL (3.5-5.1); Alkaline Phosphatase 93 U/L (38-126); Anion Gap 8 mmol/L (4-12); Aspartate Amino Transferase 25 U/L (14-36); Bilirubin,Total 0.5 mg/dL (0.2-1.3); Blood Urea Nitrogen 7 mg/dL (7-17); Calcium 9.2 mg/dL (8.4-10.2); Carbon Dioxide 28 mmol/L (22-30); Chloride 103 mmol/L (98-107); Cholesterol 117 mg/dL (0-200); Estimated Glomerular Filt Rate > 60; Glucose 122 mg/dL (65-110); HDL Direct 42 mg/dL; Potassium 4.6 mmol/L (3.4-5.0); Sodium 139 mmol/L (137-145); Triglycerides 104 mg/dL (<150)
[2023-12-31 08:39] LABS: Hemoglobin A1C 7.2 % (<5.7)
[2023-12-31 08:40] LABS: LDL Cholesterol Direct 52 mg/dL
[2023-12-31 09:00] LABS: Vitamin D 25 Hydroxy 42.8 ng/mL
[2023-12-31 09:24] LABS: Creatinine Urine 140.7 mg/dL
[2023-12-31 09:28] LABS: MALB Creatinine Ratio 6.6 mg/g (0-30); Microalbumin Urine Random 9.3 mg/L (0-16.7)
== END 2023-12-31 07:44 | disposition home or self-care (01) ==
LOC: ANHLAB 07:44
PROVIDERS: PCP Internal Medicine; Visit Provider Clinical Nurse Specialist
DX: E11.9 Type 2 diabetes mellitus without complications (principal); I10 Essential (primary) hypertension; R79.89 Other specified abnormal findings of blood chemistry; Z13.220 Encounter for screening for lipoid disorders; Z13.228 Encounter for screening for other metabolic disorders
CPT/HCPCS: 36415; 80053; 80061; 82043; 82306; 82607; 83036; 85025

== ENCOUNTER 2024-01-21 13:36 | Outpatient (CLI) | payer OTHER, SELFPAY ==
--- NOTE | ~2024-01-21 | MM_ITS ---
EXAMINATION: MM screening kala BI w ray HISTORY: Screening TECHNIQUE: Craniocaudal and mediolateral oblique 3-D tomosynthesis images were obtained and synthetic 2-D images were generated. CAD analysis was submitted and interpreted. COMPARISON: Comparison to multiple prior studies sequentially, with oldest reviewed study dated 09/04. BREAST PARENCHYMAL COMPOSITION: Not dense: There are scattered areas of fibroglandular density. FINDINGS: There are developing nodular asymmetries in the medial aspect of both breast, anterior thir d, best seen on CC views. There are no suspicious calcifications or architectural distortion. IMPRESSION: 1. Developing nodular asymmetries of both breasts. 2. Additional mammographic views and possible breast ultrasound are recommended. BI-RADS Category 0: Incomplete: Needs additional imaging evaluation. Reviewed, dictated and finalized at location B. BER MAINTENANCE IMPRESSION: 1. Developing nodular asymmetries of both breasts. 2. Additional mammographic views and possible breast ultrasound are recommended . BI-RADS Category 0: Incomplete: Needs additional imaging evaluation.
== END 2024-01-21 13:37 | disposition home or self-care (01) ==
LOC: MICIMG 13:37
PROVIDERS: PCP Clinical Nurse Specialist; Visit Provider Clinical Nurse Specialist
DX: Z12.31 Encounter for screening mammogram for malignant neoplasm of breast (principal); R92.8 Other abnormal and inconclusive findings on diagnostic imaging of breast
CPT/HCPCS: 77063; 77067

== ENCOUNTER 2024-06-28 07:12 | Outpatient (CLI) | payer OTHER, SELFPAY ==
--- OUTSIDE RECORDS SUMMARY | 2024-06-28 07:16 | XMS_ITS | Clinical Summary ---
Author Organization [facility] Address [address] [facility] [place] [address] Care Team Providers Care Forensic Economist Name Role Phone David Reyes MD Primary Care Provider [phone] Source Comments [facility],non-owned Affiliates and Associated Physician Practices is amultiple site organization consisting of ambulatory clinics and hospital sitesin [place], [place], [place] and [place]. This disclosure is being madepursuant to the Care Everywhere program and may not contain all information available regarding this patient. 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 Gender Identity Not on file Sexual Orientation Not on file Plan of Treatment Health Maintenance Due Date Last Done Comments COLOGUARD (AGES 45-75) - COL ON CA SCREENING 1973 COLON MONITORING 1973 COLONOSCOPY - COLON CA SCREENING 1973 CT COLONOGRAPHY - COLON CA SCREENING 1973 Colorectal Cancer Screening 1973 FIT - COLON CA SCREENING 1973 FLEX SIG - COLON CA SCREENING 1973 LIPID TESTING 1973 MAMMOGRAM 1973 HIV SCREENING 1988 HEPATITIS C SCREENING 07/13/1991 DTAP/TDAP/TD VACCINES (1 - Tdap) 1992 HEPATITIS B VACCINE (1 of 3 - 19+ 3-dose series) 1992 PNEUMOCOCCAL VACCINE 50+ (1 of 1 - PCV) 07/18/2023 ZOSTER VACCINE (1 of 2) 07/18/2023 COVID-19 VACCINE (1 - 2023-2 5 season) 2023 DEPRESSION SCREENING 02/16/2024 INFLUENZA VACCINE (Season Ended) 2024 HIB VACCINE Aged Out No longer eligi ble based on patient's age to complete this topic HPV VACCINE Aged Out No longer eligi ble based on patient's age to complete this topic MENINGOCOCCAL (Group B) VACC INE SHARED DECISION-MAKING Aged Out No longer eligibl e based on patient's age to complete this topic MENINGOCOCCAL GROUPS A/C/Y/W VACCINE Aged Out No longer eligible b ased on patient's age to complete this topic Insurance Care Teams Forensic Economist Relationship Specialty Start Date End Date David Reyes MD [facility] [place] [address] [address] [place] [phone] PCP - General 05/09/20
--- OUTSIDE RECORDS SUMMARY | 2024-06-28 07:17 | XMS_ITS | Referral Summary ---
Author Organization [facility] Address [facility] [place] [address] Care Team Providers Care Store Protection Specialist Name Role Phone Giorgi Flores DO Primary Care Provider [phone] Allergies Active Allergy Reactions Criticality Noted Date Comments Tetracycline Medications lisinopriL (PRINIVIL,ZESTRIL) 5 mg tablet 12/23/2020 Active metFORMIN (GLUCOPHAGE) 1,000 mg tablet 01/10/2021 Active atorvastatin (LIPITOR) 10 mg tablet 01/10/2021 Active Trulicity 1.5 mg/0.5 mL pen injector 12/25/2020 Active Active Problems Problem Noted Date Diagnosed Date Abnormal findings on diagnostic imaging of breas t 01/27/2021 Social History Tobacco Use Types Packs/Day Years Used Date Smoking Tobacco: Former Alcohol Use Standard Drinks/Week Comments Yes 0 (1 standard drink = 0.6 oz pur e alcohol) Personal Safety Answer Date Recorded Getting School Help Needed Not on file 04/29 Comments Unknown Sex and Gender Information Value Date Recorded Sex Assigned at Not on file 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 Gender Identity Not on file Sexual Orientation Not on file Last Filed Vital Signs Vital Sign Reading Time Taken Comments Blood Pressure 118/68 2013 3:02 PM CDT Pulse 68 2013 3:02 PM CDT Temperature - - Respiratory Rate - - Oxygen Saturation - - Inhaled Oxygen Concentration - - Weight 79.4 kg (175 lb) 2013 3:02 PM CDT Height 167.6 cm (5' 6 ) 2013 3:02 PM CDT Body Mass Index 28.25 2013 3:02 PM CDT Plan of Treatment Not on file Insurance [facility] Address: [address] [place] [address] [facility] Address: [address] [place] [address] Care Teams Store Protection Specialist Relationship Specialty Start Date End Date Giorgi Flores DO PCP - General 07/17/13
--- OUTSIDE RECORDS SUMMARY | 2024-06-28 07:17 | XMS_ITS | Clinical Summary ---
Author Organization [facility] Address [address] [place] [id number] Care Team Providers Care Professor Of Music Name Role Phone Giorgi Flores DO Primary Care Provider [phone] Allergies Active Allergy Reactions Criticality Noted Date Comments Tetracycline Medications lisinopriL (PRINIVIL,ZESTRIL) 5 mg tablet 12/23/2020 Active metFORMIN (GLUCOPHAGE) 1,000 mg tablet 01/10/2021 Active atorvastatin (LIPITOR) 10 mg tablet 01/10/2021 Active Trulicity 1.5 mg/0.5 mL pen injector 12/25/2020 Active Active Problems Problem Noted Date Diagnosed Date Abnormal findings on diagnostic imaging of breas t 01/27/2021 Surgical History Surgery Date Site/Laterality Comments GASTRIC BYPASS 02/15/2011 - 02/15/2012 Medical History Medical History Date Comments Type 2 diabetes mellitus (HCC) D iabetes type 2 Hypertension Hypertension Hx Other Medical herniated disc Hx Other Medical hemmorroids Hx Other Medical low vit d Hx Other Medical 2010 shoulder spur Hx Other Medical Bariatric; Comm ents: [facility] 07/18/2013 - Family History Medical History Relation Name Comments Arthritis Father arthritis; Diabetes Father Diabetes mellit us; Hypertension Father Hypertension; Arthritis Mother arthritis; Asthma Mother Asthma; Hypertension Mother Hypertension; Diabetes Other 1 Diabetes mellit us; Hypertension Other 2 Hypertension; Relation Name Status Comments Father Mother Other 1 Other 2 Social History Tobacco Use Types Packs/Day Years Used Date Smoking Tobacco: Former Alcohol Use Standard Drinks/Week Comments Yes 0 (1 standard drink = 0.6 oz pur e alcohol) Personal Safety Answer Date Recorded Getting School Help Needed Not on file 04/29 Comments Unknown Sex and Gender Information Value Date Recorded Sex Assigned at Not on file 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
[2024-06-28 07:56] LABS: Anion Gap 9 mmol/L (4-12); Blood Urea Nitrogen 7 mg/dL (7-17); Calcium 9.2 mg/dL (8.4-10.2); Carbon Dioxide 28 mmol/L (22-30); Chloride 105 mmol/L (98-107); Estimated Glomerular Filt Rate > 60; Glucose 90 mg/dL (65-110); Potassium 4.3 mmol/L (3.4-5.0); Sodium 142 mmol/L (137-145)
[2024-06-28 08:21] LABS: Hemoglobin A1C 6.4 % (<5.7)
== END 2024-06-28 07:13 | disposition home or self-care (01) ==
LOC: ANHLAB 07:14
PROVIDERS: PCP Clinical Nurse Specialist; Visit Provider Clinical Nurse Specialist
DX: E11.9 Type 2 diabetes mellitus without complications (principal)
CPT/HCPCS: 36415; 80048; 83036

== ENCOUNTER 2024-11-20 09:21 | Outpatient (CLI) | payer OTHER, SELFPAY ==
[2024-11-20 10:00] LABS: Hematocrit 43.3 % (37.0-47.0); Hemoglobin 13.6 g/dL (12.0-15.0); Immature Granulocyte Percent A 0.2 % (0-0.5); Lymphocytes Absolute Auto 1.39 K/mm3 (0.9-3.2); Mean Corpuscular HGB Conc 31.4 g/dl (32-36); Mean Corpuscular Hemoglobin 29.2 pg (26-34); Mean Corpuscular Volume 92.9 fl (80-100); Nucleated Red Blood Cells Absolute Auto 0.000 K/mm3 (0.0-0.012); Nucleated Red Blood Cells Perc 0.0 % (0.0-0.2); Platelet Count Result 315 k/mm3 (150-375); Red Blood Count 4.66 M/mm3 (4.2-5.4); White Blood Count 4.8 K/mm3 (4.5-10.0)
--- OUTSIDE RECORDS SUMMARY | 2024-11-20 10:09 | XMS_ITS | Clinical Summary ---
Author Organization [facility] [email or web address] Address [address] [place] [address] Care Team Providers Care Track Dresser Name Role Phone David Reyes MD Primary Care Provider [phone] Source Comments [facility],non-owned Affiliates and Associated Physician Practices is amultiple site organization consisting of ambulatory clinics and hospital sitesin [place], [place], [place] and [place]. This disclosure is being madepursuant to the Care Everywhere program and may not contain all information available regarding this patient. 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
--- OUTSIDE RECORDS SUMMARY | 2024-11-20 10:09 | XMS_ITS | Clinical Summary ---
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
[2024-11-20 10:19] LABS: Hemoglobin A1C 6.3 % (<5.7)
[2024-11-20 10:24] LABS: Alanine Aminotransferase 20 U/L (6-35); Albumin Level 4.3 g/dL (3.5-5.1); Alkaline Phosphatase 75 U/L (38-126); Anion Gap 10 mmol/L (4-12); Aspartate Amino Transferase 28 U/L (14-36); Bilirubin,Total 0.9 mg/dL (0.2-1.3); Blood Urea Nitrogen 9 mg/dL (7-17); Calcium 9.5 mg/dL (8.4-10.2); Carbon Dioxide 26 mmol/L (22-30); Chloride 104 mmol/L (98-107); Cholesterol 122 mg/dL (0-200); Estimated Glomerular Filt Rate > 60; Glucose 126 mg/dL (65-110); HDL Direct 40 mg/dL; Potassium 3.9 mmol/L (3.4-5.0); Sodium 140 mmol/L (137-145); Total Protein 7.6 g/dL (6.3-8.2); Triglycerides 84 mg/dL (<150)
[2024-11-20 10:33] LABS: MALB Creatinine Ratio 9.2 mg/g (0-30)
[2024-11-20 10:52] LABS: Syphilis IgG/IgM Antibody Non-Reactive (Nonreactive)
[2024-11-20 10:53] LABS: Hepatitis B Surface Antigen Negative (Negative)
[2024-11-20 10:59] LABS: HAV RESULT Negative (Negative); Hepatitis B Core IgM Result Negative (Negative)
[2024-11-20 11:00] LABS: Thyroid Stimulating Hormone 1.270 uIU/mL (0.465-4.680)
[2024-11-20 11:01] LABS: HIV 1/2 Ab P24 Ag Result Negative (Negative)
[2024-11-20 11:19] LABS: Vitamin B12 710.0 pg/mL (239-931)
[2024-11-21 06:07] LABS: HSV 1 IgG, Type Spec Non Reactive (Non Reactive); HSV 2 IgG, Type Spec Non Reactive (Non Reactive)
== END 2024-11-20 09:22 | disposition home or self-care (01) ==
LOC: ANHLAB 09:22
PROVIDERS: PCP Clinical Nurse Specialist; Referring Provider Obstetrics & Gynecology; Visit Provider Clinical Nurse Specialist
DX: Z11.3 Encounter for screening for infections with a predominantly sexual mode of transmission (principal); I10 Essential (primary) hypertension; E11.9 Type 2 diabetes mellitus without complications; F41.9 Anxiety disorder, unspecified; R41.3 Other amnesia; G25.0 Essential tremor
CPT/HCPCS: 36415; 80053; 80061; 80074; 82043; 82306; 82607; 83036; 84443; 85025; 86593; 86695; 86696; 86703; G0432